=== PATIENT | female | born 1945 | race African-American/Black ===

== ENCOUNTER 2016-08-03 19:13 | Emergency (ER) | payer MEDICARE, MEDICAID ==
[~2016-08-03] VITALS: Ht 165.1 cm; Wt 133.8 kg
[~2016-08-03 19:13] MED LIST: ALUM-MAG HYDRO360 ML PO; ASPIR-LOW81 MG PO; ASPIRIN-LOW81 MG ORAL; ATORVASTATIN CA40 MG PO; BENAZEPRIL HCL5 MG PO; BISACODYL5 MG RC; CALCIUM 500 +1 EAC3 PO; CIPRO500 MG/51 PO; CIPROFLOXA500 MG/5 M PO; COLACE100 MG ORAL; DEPAKOTE250 MG PO; FLEET ENEMA133 ML RECTAL; HYDROCHLOROTH12.5 MG PO; KLONOPIN1 MG ORAL; LASIX20 M1 ORAL; LEVAQUIN500 MG ORAL; LOVENOX10 M2 SUBQ; MACROBID100 MG ORAL; MOM30 ML ORAL; MULTIVITAMINS1 EA13 ORAL; NEURONTIN100 MG ORAL; NEURONTIN100 MG PO; PROTONIX40 MG ORAL; SEROQUEL25 MG ORAL; TEGRETOL100 MG PO; TYLENOL EXTRA500 MG PO; TYLENOL325 MG ORAL; ZOLPIDEM TARTRAT5 MG ORAL; [UNRECOGNIZED DRUG - REMARK] MISC; haldol; klonopin; quetiapine; xarelto
[2016-08-03 19:15] VITALS: BP 118/76
[2016-08-03] MEDS ORDERED: ACETIC ACID15 ML RIGHT EAR (20:57)
[2016-08-03] MEDS ORDERED: OCUFLOX5 ML RIGHT EAR (20:57)
[2016-08-03 21:15] VITALS: BP 130/67
[2016-08-03 21:57] VITALS: BP 127/61
--- NOTE | 2016-08-04 13:55 | Emergency Room Report ---
History of Present Illness General Chief Complaint: Dizziness Source: Patient, Family Member, Medical Record Present Illness HPI 71-year-old female presents to ED for evaluation. Patient referred to ED for drainage and pain in her right ear. Was noticed by senior living staff today. Patient states pain is throbbing, 5/10, nonradiating. Denies any fevers or chills. Sister is at bedside states that patient has chronic history of ear infections. Sister was planning to take patient to ENT tomorrow however patient complained of pain so was brought to [facility]. Denies sore throat or cough. Denies sick contacts or recent travel. No other aggravating relieving factors. Denies any other associated symptoms Allergies: Coded Allergies: AZITHROMYCIN (Unverified Allergy, Severe, 02/14/15) CODEINE (Verified Allergy, Mild, 03/24/10) DIPHENHYDRAMINE (Verified Allergy, Mild, 12/19/14) Patient/Family Deny Allergy or sensitivity to Benadryl ANTIHISTAMINES - ALKYLAMINE (Verified Allergy, Unknown, 09/21/09) ANTIHISTAMINES - ETHANOLAMINE (Verified Allergy, Unknown, 09/21/09) ANTIHISTAMINES - ETHYLENEDIAMINE (Verified Allergy, Unknown, 09/21/09) ANTIHISTAMINES - PIPERAZINE (Verified Allergy, Unknown, 09/21/09) ANTIHISTAMINES - PIPERIDINE (Verified Allergy, Unknown, 09/21/09) ERYTHROMYCIN BASE (Verified Allergy, Unknown, 09/21/09) PENICILLIN G (Unverified Allergy, Unknown, 09/24/15) PENICILLINS (Verified Allergy, Unknown, 09/21/09) Patient History Past Medical History: DM, HTN, COPD, CVA/TIA, dementia Pertinent Family History: none Social History: Denies: alcohol use, drug use, smoking Now: No Immunizations: UTD Reviewed Nursing Documentation: PMH: Agreed, PSxH: Agreed Nursing Documentation-PMH Hx Cardiac Problems: Yes Hx Hypertension: Yes Hx Pacemaker: No Hx Asthma: No Hx COPD: Yes Hx Diabetes: Yes - FAMILY DENIES PT. IS DIABETIC Hx Cancer: No Hx Gastrointestinal Problems: No Hx Dialysis: No History Of Psychiatric Problem: No Hx Neurological Problems: Yes - encephalopathy Hx Cerebrovascular Accident: Yes Hx Transient Ischemic Attacks: Yes Hx Seizures: Yes Hx Epilepsy: Yes Hx Memory Loss: Yes Hx Dizziness: Yes Hx Syncope: Yes Hx Weakness: Yes Hx Fatigue: Yes Review of Systems All Other Systems: negative except mentioned in HPI Physical Exam Vital Signs Date Time Temp Pulse Resp B/P Pulse Ox O2 Delivery O2 Flow Rate FiO2 08/03/16 18:59 99.1 77 16 118/76 98 Room Air Sp02 EP Interpretation: reviewed, normal General Appearance: no apparent distress, alert, GCS 15, non-toxic, obese Head: normocephalic Eyes: bilateral eye PERRL, bilateral eye normal inspection ENT: hearing grossly normal, normal pharynx, no angioedema, normal voice, other - R TM copius discharge noted. swollen ear canal Neck: full range of motion, supple/symm/no masses Respiratory: chest non-tender, lungs clear, normal breath sounds, speaking full sentences Cardiovascular #1: regular rate, rhythm, no edema Gastrointestinal: normal bowel sounds, non tender, soft, non-distended, no guarding, no rebound Rectal: deferred Genitourinary: no CVA tenderness Musculoskeletal: normal inspection Neurologic: alert, oriented x3, responsive, motor strength/tone normal, sensory intact, speech normal Psychiatric: judgement/insight normal, memory normal, mood/affect normal, no suicidal/homicidal ideation Skin: normal inspection Lymphatic: normal inspection Medical Decision Making Diagnostic Impression: Primary Impression: Otitis externa Qualified Codes: H60.61 - Unspecified chronic otitis externa, right ear ER Course Hospital Course 71-year-old M presents to ED with pain R ear. with drainage Differential diagnoses include: TM perforation, otitis externa, otitis media Clinical course Patient placed on stretcher. After initial history, physical exam reveals an elderly female in no acute distress. On exam there is copious discharge from the right ear canal. Unable to adequately visualize the right TM I discussed findings with the sister. She states that patient normally gets a boric acid solution in the ear which normally helps clear the infection. I discuss with pharmacy and they do not have boric acid available. There is an alternative of acetic acid solution which we also do not have I explained this to the sister. States that for the solutions patient will need to go to ENT clinic. However patient is afebrile, nontoxic with stable vitals. We irrigated the ear and provided some suction to clear out the discharge. In the meanwhile I will provide prescriptions for ofloxacin otic and acetic acid solution until patient can go to ENT clinic Diagnosis - otitis externa Stable and discharged to home with Rx ofloxacin otic and acetic acid. Followup with PMD. Return to ED if symptoms recur or worsen Last Vital Signs Date Time Temp Pulse Resp B/P Pulse Ox O2 Delivery O2 Flow Rate FiO2 08/03/16 21:57 99.0 71 17 127/61 98 Room Air Status: improved Disposition: XFER SNF Condition: Stable Scripts Acetic Acid (ACETIC ACID) 15 Ml Solution 3 DROP RIGHT EAR FOUR TIMES A DAY for 10 Days, UNIT Prov: EDWARD BRANDON M.D. 08/03/16 Ofloxacin (OCUFLOX) 5 Ml Drops 10 DROP RIGHT EAR BID for 10 Days, ML Prov: EDWARD BRANDON M.D. 08/03/16 Referrals: SOPHIE POLANCO (PCP) Dejuan Burgess MD, ANDREW Patient Instructions: Otitis Externa Additional Instructions: sister said 'no drops' in ear. patient has done well with boric acid in the ear which we do not provide. only done in ENT clinics. please refer to ENT clinic. discuss with ENT before giving ear drops EDWARD BRANDON M.D. August 04, 2016 13:55
== END 2016-08-03 21:57 ==
LOC: EDBD 19:13 → EMR 20:49
DX: H60.91 Unspecified otitis externa, right ear (principal); I10 Essential (primary) hypertension; J44.9 Chronic obstructive pulmonary disease, unspecified; E11.9 Type 2 diabetes mellitus without complications; Z88.8 Allergy status to other drugs, medicaments and biological substances; Z88.0 Allergy status to penicillin; Z88.6 Allergy status to analgesic agent
CPT/HCPCS: 99284